=== PATIENT | female | born 1995 | race Caucasian/White ===

== ENCOUNTER 2020-12-16 07:40 | Day surgery (SDC) | payer OTHER ==
[~2020-12-16] VITALS: Ht 172.7 cm; Wt 105.6 kg
[~2020-12-16 07:40] MED LIST: BUPIVACAINE/PF 0.5% ONE; EPINEPHRINE 1 MG/ML, 1ML ONE; NORE1TAB11 PO; SIME80TA15 PO; Tylenol PM PO; promethazine
[2020-12-16 08:16] VITALS: BP 119/83
[2020-12-16 08:19] LABS: HCG UR SG 1.017 (1.003-1.030)
[2020-12-16] MEDS ORDERED: INDOCYANINE GREEN 25 MG VIAL ONE (08:22)
[2020-12-16] MEDS ORDERED: CHLORHEXIDINE 15 ML UDC PO ONE (08:30)
[2020-12-16] MEDS ORDERED: INDOCYANINE GREEN 25 MG VIAL IVPush ONE (08:30)
[2020-12-16] MEDS ORDERED: LACTATED RINGERS 1,000 ML IV SCH (08:30)
[2020-12-16] MEDS ORDERED: MIDAZOLAM 1 MG/ML, 2ML ONE (08:55)
[2020-12-16] MEDS ORDERED: ONDANSETRON 2MG/ML, 2ML ONE (08:55)
[2020-12-16] MEDS ORDERED: GLYCOPYRROLATE 0.2MG/1ML, 5ML ONE (08:55)
[2020-12-16] MEDS ORDERED: SUCCINYLCHOLINE 20 MG/ML, 10ML ONE (08:55)
[2020-12-16] MEDS ORDERED: PROPOFOL 10 MG/ML, 20ML ONE (08:55)
[2020-12-16] MEDS ORDERED: CEFAZOLIN 1,000 MG ONE (08:55)
[2020-12-16] MEDS ORDERED: ROCURONIUM 10MG/ML,5ML ONE (08:55)
[2020-12-16] MEDS ORDERED: FENTANYL PF 100 MCG/2ML ONE ×3 (08:55→11:13)
[2020-12-16] MEDS ORDERED: NEOSTIGMINE 1 MG/ML, 10ML ONE (08:55)
[2020-12-16] MEDS ORDERED: DEXAMETHASONE 4 MG/ML, 1ML ONE (08:55)
[2020-12-16] MEDS ORDERED: MEPERIDINE/PF 25MG/0.5ML IVPush PRN (10:00)
[2020-12-16] MEDS ORDERED: HYDROmorphone 1 MG/ML, 1ML INJ IVPush PRN (10:00)
[2020-12-16] MEDS ORDERED: KETOROLAC 30 MG/1 ML IVPush PRN (10:00)
[2020-12-16] MEDS ORDERED: HYDROcodone/APAP 7.5-325MG/15ML UDC PO PRN (10:00)
[2020-12-16] MEDS ORDERED: PROMETHAZINE 25 MG/ML, 1ML IVPush PRN (10:00)
[2020-12-16] MEDS ORDERED: ONDANSETRON 2MG/ML, 2ML IVPush PRN (10:00)
[2020-12-16] MEDS ORDERED: OXYcodone 5 MG/5 ML ORAL.SOL UDC PO PRN (10:00)
[2020-12-16] MEDS ORDERED: HYDR-2214 PO (11:07)
[2020-12-16] MEDS ORDERED: ONDA4TAB7 PO (11:07)
[2020-12-16] MEDS ORDERED: HYDROcodone/APAP 7.5-325MG/15ML UDC ONE (11:13)
[2020-12-16] MEDS ORDERED: KETOROLAC 30 MG/1 ML ONE (11:13)
[2020-12-16] MEDS: FENTANYL PF 100 MCG/2ML IV PRN ×2 (11:19→11:29)
== END 2020-12-16 13:46 | disposition home or self-care (01) ==
LOC: OUT 07:40
PROVIDERS: ATTEND Surgery
DX: K80.10 Calculus of gallbladder with chronic cholecystitis without obstruction (principal); Z20.822 Contact with and (suspected) exposure to COVID-19
CPT/HCPCS: 47562; 81025; 88304; J0171; J0330; J0690; J1100; J1885; J2250; J2405; J2704; J2710; J3010; J7120; U0003; U0005